=== PATIENT | female | born 1935 | race Two or more races ===

== ENCOUNTER → 2017-08-04 | Outpatient (CLI) | payer MEDICARE ==
[~2017-08-04] MED LIST: ASPI1CPM9 PO; GABA-827 PO; LEVO50TA PO; LISI-167 PO; SERT50TA PO; TOPI25TA32 PO; TRAM50TA2 PO
== END ==
LOC: RAD 12:30
PROVIDERS: ATTEND Internal Medicine
DX: I63.9 Cerebral infarction, unspecified (principal)
CPT/HCPCS: 70450

== ENCOUNTER → 2017-08-10 | Outpatient (CLI) | payer MEDICARE | END | disposition home or self-care (01) | LOC: CFH 10:06 | PROVIDERS: ATTEND Licensed Practical Nurse | DX: Z13.820 Encounter for screening for osteoporosis (principal); M81.0 Age-related osteoporosis without current pathological fracture; N95.8 Other specified menopausal and perimenopausal disorders; E55.9 Vitamin D deficiency, unspecified; R80.9 Proteinuria, unspecified; K80.20 Calculus of gallbladder without cholecystitis without obstruction; K76.0 Fatty (change of) liver, not elsewhere classified; E79.0 Hyperuricemia without signs of inflammatory arthritis and tophaceous disease; I12.9 Hypertensive chronic kidney disease with stage 1 through stage 4 chronic kidney disease, or unspecified chronic kidney disease; N18.3 Chronic kidney disease, stage 3 (moderate) | CPT/HCPCS: 77080 ==

== ENCOUNTER → 2017-11-10 | Outpatient (CLI) | payer MEDICARE | END | disposition home or self-care (01) | LOC: CFH 09:08 | PROVIDERS: ATTEND Pain Medicine Pain Medicine | DX: M41.86 Other forms of scoliosis, lumbar region (principal); M47.817 Spondylosis without myelopathy or radiculopathy, lumbosacral region; Z98.1 Arthrodesis status | CPT/HCPCS: 72114 ==

== ENCOUNTER → 2018-03-30 | Outpatient (CLI) | payer MEDICARE | END | disposition home or self-care (01) | LOC: CFH 11:22 | DX: M16.11 Unilateral primary osteoarthritis, right hip (principal); M46.1 Sacroiliitis, not elsewhere classified; M43.27 Fusion of spine, lumbosacral region | CPT/HCPCS: 72170 ==

== ENCOUNTER 2018-04-27 09:03 | Emergency (ER) | payer MEDICARE ==
[~2018-04-27] VITALS: Ht 162.6 cm; Wt 64.5 kg
[2018-04-27] MEDS ORDERED: METH750T2 PO (09:50)
[2018-04-27 10:06] LABS: BASOPHILS # (AUTO) 0.03 x10^3/uL (0-0.1); BASOPHILS % (AUTO) 0 % (0-1); EOSINOPHILS # (AUTO) 0.06 x10^3/uL (0-0.4); EOSINOPHILS % (AUTO) 1 % (1-7); LYMPHOCYTES # (AUTO) 1.64 x10^3/uL (1-3.4); LYMPHOCYTES % (AUTO) 24 % (22-44); MD NO; MEAN CORPUSCULAR HEMOGLOBIN 31.8 pg (27.0-34.8); MEAN CORPUSCULAR HGB CONC 33.1 g/dL (32.4-35.8); MEAN CORPUSCULAR VOLUME 96.2 fL (80-100); MEAN PLATELET VOLUME 8.2 fL (7.4-10.4); MONOCYTES # (AUTO) 0.67 x10^3/uL (0.2-0.8); MONOCYTES % (AUTO) 10 % (2-9); NEUTROPHILS # (AUTO) 4.57 x10^3/uL (1.8-6.8); NEUTROPHILS % (AUTO) 66 % (42-75); PLATELET COUNT 173 x10^3/uL (130-400); RED BLOOD COUNT 4.52 x10^6/uL (3.82-5.3)
[2018-04-27 10:12] LABS: ALANINE AMINOTRANSFERASE 28 U/L (12-78); ALBUMIN 3.7 g/dL (3.4-5.0); ANION GAP 6 mmol/L (5-15); CALCIUM 9.5 mg/dL (8.5-10.1); CHLORIDE 109 mmol/L (98-107)
[2018-04-27 10:13] LABS: INTERNATIONAL NORMALIZED RATIO 1.01 (0.93-1.1); PROTHROMBIN TIME 10.5 Seconds (9.6-11.5)
[2018-04-27 10:14] LABS: ALKALINE PHOSPHATASE 70 U/L (45-117); BILIRUBIN,TOTAL 0.5 mg/dL (0.2-1.0); TOTAL PROTEIN 6.9 g/dL (6.4-8.2)
[2018-04-27 11:02] VITALS: BP 148/64
== END 2018-04-27 12:18 | disposition home or self-care (01) ==
LOC: ED 10:55
DX: K62.5 Hemorrhage of anus and rectum (principal); I10 Essential (primary) hypertension; E03.9 Hypothyroidism, unspecified; M19.90 Unspecified osteoarthritis, unspecified site; F32.9 Major depressive disorder, single episode, unspecified; Z90.710 Acquired absence of both cervix and uterus; Z90.49 Acquired absence of other specified parts of digestive tract; Z90.89 Acquired absence of other organs; Z87.891 Personal history of nicotine dependence; Z88.0 Allergy status to penicillin; Z88.8 Allergy status to other drugs, medicaments and biological substances
CPT/HCPCS: 36415; 80053; 85025; 85610; 85730; 99284

== ENCOUNTER 2018-11-03 11:56 | Emergency (ER) | payer MEDICARE ==
[~2018-11-03] VITALS: Ht 165.1 cm; Wt 66.4 kg
[~2018-11-03 11:56] MED LIST changes: +METH750T2 PO
[2018-11-03 12:01] VITALS: BP 136/97
--- NOTE | 2018-11-03 12:31 | NUR ---
right leg dressed with steri strips and dressed
== END 2018-11-03 12:42 | disposition home or self-care (01) ==
LOC: ED 12:20
DX: S81.812A Laceration without foreign body, left lower leg, initial encounter (principal); W22.8XXA Striking against or struck by other objects, initial encounter; Y93.89 Activity, other specified; Y92.009 Unspecified place in unspecified non-institutional (private) residence as the place of occurrence of the external cause; Y99.8 Other external cause status
CPT/HCPCS: 12032

== ENCOUNTER 2019-04-09 13:14 | Outpatient (CLI) | payer MEDICARE | END 2019-04-09 23:59 | disposition home or self-care (01) | LOC: WOUND 13:14 | PROVIDERS: ATTEND Internal Medicine | DX: S89.91XD Unspecified injury of right lower leg, subsequent encounter (principal); Z86.73 Personal history of transient ischemic attack (TIA), and cerebral infarction without residual deficits; E78.5 Hyperlipidemia, unspecified; I10 Essential (primary) hypertension; F32.9 Major depressive disorder, single episode, unspecified; E03.9 Hypothyroidism, unspecified; G47.00 Insomnia, unspecified; Z96.653 Presence of artificial knee joint, bilateral; Z87.891 Personal history of nicotine dependence; X58.XXXD Exposure to other specified factors, subsequent encounter | CPT/HCPCS: G0463 ==

== ENCOUNTER 2019-04-12 10:24 | Inpatient (IN) | payer MEDICARE ==
[~2019-04-12] VITALS: Ht 165.1 cm; Wt 68.4 kg
--- NOTE | 2019-04-12 10:35 | NUR ---
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
[2019-04-12] MEDS ORDERED: CEFTRIAXONE PMX 1GM/50ML 50 ML IVPB ONE (11:00)
[2019-04-12] MEDS ORDERED: SODIUM CHLORIDE 0.9% 1,000ML IVBOLUS ONE (11:00)
[2019-04-12] MEDS ORDERED: VANCOMYCIN PER PHARMACY MC ONE (11:00)
[2019-04-12] MEDS ORDERED: MORPHINE SULFATE 4 MG/ML, 1ML IVPush PRN (11:00)
[2019-04-12] MEDS ORDERED: ONDANSETRON 2MG/ML, 2ML IVPush ONE (11:00)
[2019-04-12] MEDS ORDERED: MORPHINE SULFATE 4 MG/ML, 1ML ONE (11:04)
[2019-04-12] MEDS ORDERED: ONDANSETRON 2MG/ML, 2ML ONE (11:04)
[2019-04-12] MEDS ORDERED: CEFTRIAXONE PMX 1GM/50ML 50 ML ONE (11:04)
[2019-04-12 11:15] LABS: BASOPHILS # (AUTO) 0.02 x10^3/uL (0-0.1); BASOPHILS % (AUTO) 0 % (0-1); EOSINOPHILS # (AUTO) 0.12 x10^3/uL (0-0.4); EOSINOPHILS % (AUTO) 2 % (1-7); LYMPHOCYTES # (AUTO) 1.66 x10^3/uL (1-3.4); LYMPHOCYTES % (AUTO) 26 % (22-44); MD NO; MEAN CORPUSCULAR HEMOGLOBIN 32.6 pg (27.0-34.8); MEAN CORPUSCULAR HGB CONC 32.7 g/dL (32.4-35.8); MEAN CORPUSCULAR VOLUME 99.8 fL (80-100); MEAN PLATELET VOLUME 8.3 fL (7.4-10.4); MONOCYTES # (AUTO) 0.76 x10^3/uL (0.2-0.8); MONOCYTES % (AUTO) 12 % (2-9); NEUTROPHILS # (AUTO) 3.87 x10^3/uL (1.8-6.8); NEUTROPHILS % (AUTO) 60 % (42-75); PLATELET COUNT 216 x10^3/uL (130-400); RED BLOOD COUNT 4.28 x10^6/uL (3.82-5.3); RED CELL DISTRIBUTION WIDTH 12.5 % (9.6-15.2)
[2019-04-12 11:27] LABS: ALANINE AMINOTRANSFERASE 23 U/L (12-78); ALBUMIN 3.5 g/dL (3.4-5.0); ANION GAP 4 mmol/L (5-15); CALCIUM 10.1 mg/dL (8.5-10.1); CHLORIDE 109 mmol/L (98-107); CREATININE 1.09 mg/dL (0.55-1.02)
[2019-04-12 11:29] LABS: ALKALINE PHOSPHATASE 74 U/L (45-117); BILIRUBIN,TOTAL 0.5 mg/dL (0.2-1.0); TOTAL PROTEIN 7.4 g/dL (6.4-8.2)
[2019-04-12] MEDS ORDERED: VANCOMYCIN 1,200 MG in SODIUM CHLORIDE 0.9% 250 ML IV ONE (11:30)
[2019-04-12] MEDS ORDERED: LIDOCAINE-MPF 1%, 5ML INFIL ONE (12:00)
[2019-04-12] MEDS ORDERED: LIDOCAINE-MPF 1%, 5ML ONE ×2 (12:05)
--- NOTE | 2019-04-12 12:32 | NUR ---
Pt's abscess drained by millie Ann infusing, awaiting admit order. pt in bed, NAD, no needs at this time, WCTM.
--- NOTE | 2019-04-12 13:25 | NUR ---
Add on MD Doyle liz to place admit order. Pt in bed, NAD, no needs at this time, WCTM.
[2019-04-12] MEDS ORDERED: hydrALAzine 20 MG/ML, 1ML IVPush PRN (15:30)
[2019-04-12] MEDS ORDERED: ONDANSETRON 2MG/ML, 2ML IVPush PRN (15:30)
[2019-04-12] MEDS ORDERED: LABETALOL 5 MG/ML SYR. (IV ONLY) IVPush PRN (15:30)
[2019-04-12] MEDS ORDERED: morphine SULFATE 10 MG/ML, 1ML IVPush PRN (15:30)
[2019-04-12] MEDS: SODIUM CHLORIDE 0.9% 1,000 ML IV SCH (15:37)
[2019-04-12 16:20] VITALS: BP 125/47
[2019-04-12] MEDS: HEPARIN 5,000 UNITS/ML, 1ML SQ SCH ×2 (16:22→23:54)
[2019-04-12] MEDS: CLINDAMYCIN PMX 600MG/50ML 50 ML IV SCH ×2 (16:22→21:01)
[2019-04-12] MEDS: TOPIRAMATE 25 MG TABLET PO SCH ×2 (17:38→21:00)
[2019-04-12] MEDS: GABAPENTIN 400 MG CAPSULE PO SCH ×2 (17:38→21:00)
[2019-04-12 19:27] VITALS: BP 116/68
[2019-04-12] MEDS: METHOCARBAMOL 500 MG TABLET PO SCH (20:59)
[2019-04-12] MEDS ORDERED: METHOCARBAMOL 750 MG TABLET PO SCH (21:00)
[2019-04-12] MEDS: HYDROcodone/APAP 5/325 TABLET PO PRN (21:01)
[2019-04-13 01:45] VITALS: BP 101/61
[2019-04-13] MEDS: CLINDAMYCIN PMX 600MG/50ML 50 ML IV SCH ×4 (03:14→21:15)
[2019-04-13] MEDS: SODIUM CHLORIDE 0.9% 1,000 ML IV SCH (05:21)
[2019-04-13 05:45] VITALS: BP 120/68
[2019-04-13] MEDS: GABAPENTIN 400 MG CAPSULE PO SCH ×4 (05:58→21:15)
[2019-04-13] MEDS: LEVOTHYROXINE 50 MCG TABLET PO SCH (05:59)
[2019-04-13] MEDS: TOPIRAMATE 25 MG TABLET PO SCH ×4 (06:09→21:15)
[2019-04-13 06:15] LABS: BASOPHILS # (AUTO) 0.02 x10^3/uL (0-0.1); BASOPHILS % (AUTO) 1 % (0-1); EOSINOPHILS # (AUTO) 0.17 x10^3/uL (0-0.4); EOSINOPHILS % (AUTO) 4 % (1-7); LYMPHOCYTES # (AUTO) 1.86 x10^3/uL (1-3.4); LYMPHOCYTES % (AUTO) 41 % (22-44); MD NO; MEAN CORPUSCULAR HEMOGLOBIN 32.5 pg (27.0-34.8); MEAN CORPUSCULAR HGB CONC 32.7 g/dL (32.4-35.8); MEAN CORPUSCULAR VOLUME 99.6 fL (80-100); MEAN PLATELET VOLUME 8.1 fL (7.4-10.4); MONOCYTES # (AUTO) 0.59 x10^3/uL (0.2-0.8); MONOCYTES % (AUTO) 13 % (2-9); NEUTROPHILS # (AUTO) 1.95 x10^3/uL (1.8-6.8); NEUTROPHILS % (AUTO) 42 % (42-75); PLATELET COUNT 176 x10^3/uL (130-400); RED BLOOD COUNT 3.62 x10^6/uL (3.82-5.3); RED CELL DISTRIBUTION WIDTH 12.7 % (9.6-15.2)
[2019-04-13 06:28] LABS: CALCIUM 8.9 mg/dL (8.5-10.1); CHLORIDE 113 mmol/L (98-107)
[2019-04-13 06:31] LABS: ALANINE AMINOTRANSFERASE 20 U/L (12-78); ALBUMIN 2.6 g/dL (3.4-5.0); ALKALINE PHOSPHATASE 60 U/L (45-117); ANION GAP 4 mmol/L (5-15); BILIRUBIN,TOTAL 0.4 mg/dL (0.2-1.0); CREATININE 0.92 mg/dL (0.55-1.02); TOTAL PROTEIN 5.6 g/dL (6.4-8.2)
[2019-04-13] MEDS: HYDROcodone/APAP 5/325 TABLET PO PRN ×2 (06:33→16:45)
[2019-04-13] MEDS: HEPARIN 5,000 UNITS/ML, 1ML SQ SCH ×3 (08:38→23:44)
[2019-04-13] MEDS: METHOCARBAMOL 500 MG TABLET PO SCH ×3 (08:41→21:15)
[2019-04-13 08:55] VITALS: BP 126/53
[2019-04-13 14:00] VITALS: BP 121/64
[2019-04-13 19:28] VITALS: BP 112/57
[2019-04-14 00:58] VITALS: BP 115/69
[2019-04-14] MEDS: CLINDAMYCIN PMX 600MG/50ML 50 ML IV SCH ×4 (03:20→22:48)
[2019-04-14] MEDS: HYDROcodone/APAP 5/325 TABLET PO PRN ×2 (04:18→11:09)
[2019-04-14 05:37] LABS: BASOPHILS # (AUTO) 0.03 x10^3/uL (0-0.1); BASOPHILS % (AUTO) 1 % (0-1); EOSINOPHILS # (AUTO) 0.19 x10^3/uL (0-0.4); EOSINOPHILS % (AUTO) 4 % (1-7); LYMPHOCYTES % (AUTO) 37 % (22-44); MD NO; MEAN CORPUSCULAR HEMOGLOBIN 32.7 pg (27.0-34.8); MEAN CORPUSCULAR HGB CONC 32.9 g/dL (32.4-35.8); MEAN CORPUSCULAR VOLUME 99.5 fL (80-100); MEAN PLATELET VOLUME 8.1 fL (7.4-10.4); MONOCYTES # (AUTO) 0.71 x10^3/uL (0.2-0.8); MONOCYTES % (AUTO) 14 % (2-9); NEUTROPHILS # (AUTO) 2.26 x10^3/uL (1.8-6.8); NEUTROPHILS % (AUTO) 44 % (42-75); PLATELET COUNT 202 x10^3/uL (130-400); RED BLOOD COUNT 3.64 x10^6/uL (3.82-5.3); RED CELL DISTRIBUTION WIDTH 12.6 % (9.6-15.2)
[2019-04-14 05:48] LABS: CHLORIDE 115 mmol/L (98-107)
[2019-04-14 05:56] LABS: ALANINE AMINOTRANSFERASE 18 U/L (12-78); ALBUMIN 2.6 g/dL (3.4-5.0); ALKALINE PHOSPHATASE 64 U/L (45-117); ANION GAP 4 mmol/L (5-15); BILIRUBIN,TOTAL 0.2 mg/dL (0.2-1.0); CALCIUM 9.5 mg/dL (8.5-10.1); CREATININE 0.99 mg/dL (0.55-1.02); TOTAL PROTEIN 5.8 g/dL (6.4-8.2)
[2019-04-14 06:09] VITALS: BP 125/74
[2019-04-14] MEDS: TOPIRAMATE 25 MG TABLET PO SCH ×4 (06:12→20:58)
[2019-04-14] MEDS: GABAPENTIN 400 MG CAPSULE PO SCH ×4 (06:12→20:58)
[2019-04-14] MEDS: LEVOTHYROXINE 50 MCG TABLET PO SCH (06:12)
[2019-04-14 08:05] VITALS: BP 151/77
[2019-04-14] MEDS: HEPARIN 5,000 UNITS/ML, 1ML SQ SCH ×3 (08:50→23:18)
[2019-04-14] MEDS: METHOCARBAMOL 500 MG TABLET PO SCH ×2 (08:50→20:58)
[2019-04-14] MEDS: SODIUM CHLORIDE 0.9% 1,000 ML IV SCH (10:46)
[2019-04-14 12:07] VITALS: BP 128/82
[2019-04-14] MEDS ORDERED: POLYETHYLENE GLYCOL 17 GM PACKET NG PRN (18:00)
[2019-04-14 19:08] VITALS: BP 131/61
[2019-04-14 23:44] LABS: MICROSCOPIC AUTO
[2019-04-15 02:19] VITALS: BP 124/72
[2019-04-15 05:15] LABS: BASOPHILS # (AUTO) 0.02 x10^3/uL (0-0.1); BASOPHILS % (AUTO) 0 % (0-1); EOSINOPHILS # (AUTO) 0.23 x10^3/uL (0-0.4); EOSINOPHILS % (AUTO) 5 % (1-7); LYMPHOCYTES % (AUTO) 33 % (22-44); MD NO; MEAN CORPUSCULAR HEMOGLOBIN 32.3 pg (27.0-34.8); MEAN CORPUSCULAR HGB CONC 32.6 g/dL (32.4-35.8); MEAN PLATELET VOLUME 8.1 fL (7.4-10.4); MONOCYTES # (AUTO) 0.62 x10^3/uL (0.2-0.8); MONOCYTES % (AUTO) 12 % (2-9); NEUTROPHILS # (AUTO) 2.51 x10^3/uL (1.8-6.8); NEUTROPHILS % (AUTO) 49 % (42-75); PLATELET COUNT 214 x10^3/uL (130-400); RED BLOOD COUNT 3.76 x10^6/uL (3.82-5.3); RED CELL DISTRIBUTION WIDTH 12.5 % (9.6-15.2)
[2019-04-15 05:15] LABS: ALBUMIN 2.6 g/dL (3.4-5.0); ANION GAP 5 mmol/L (5-15); CALCIUM 9.7 mg/dL (8.5-10.1); CHLORIDE 115 mmol/L (98-107)
[2019-04-15] MEDS: CLINDAMYCIN PMX 600MG/50ML 50 ML IV SCH ×2 (05:30→11:26)
[2019-04-15] MEDS: GABAPENTIN 400 MG CAPSULE PO SCH ×4 (05:35→20:44)
[2019-04-15] MEDS: LEVOTHYROXINE 50 MCG TABLET PO SCH (05:36)
[2019-04-15] MEDS: TOPIRAMATE 25 MG TABLET PO SCH ×4 (05:36→20:44)
[2019-04-15 08:01] VITALS: BP 128/78
[2019-04-15] MEDS: METHOCARBAMOL 500 MG TABLET PO SCH ×2 (09:02→20:44)
[2019-04-15] MEDS: HEPARIN 5,000 UNITS/ML, 1ML SQ SCH ×2 (09:05→15:18)
[2019-04-15] MEDS: MULTIVITS,STRESS FORMULA 1 TABLET PO SCH (11:26)
[2019-04-15] MEDS: CALCIUM CARBONATE 500 MG TAB.CHEW PO SCH ×2 (11:26→20:44)
[2019-04-15 13:16] VITALS: BP 127/75
[2019-04-15] MEDS: CLINDAMYCIN 300 MG CAPSULE PO SCH ×2 (15:17→20:44)
[2019-04-15] MEDS: SODIUM CHLORIDE 0.9% 1,000 ML IV SCH (15:19)
[2019-04-15] MEDS: ASCORBIC ACID 500 MG TABLET PO SCH (17:13)
[2019-04-15] MEDS: CHOLECALCIFEROL 400 UNITS/ML ORAL SOL PO SCH (17:13)
[2019-04-15 18:52] VITALS: BP 125/69
[2019-04-16 01:06] VITALS: BP 134/69
[2019-04-16] MEDS: CLINDAMYCIN 300 MG CAPSULE PO SCH ×4 (02:25→20:16)
[2019-04-16] MEDS: HEPARIN 5,000 UNITS/ML, 1ML SQ SCH ×4 (02:26→23:36)
[2019-04-16] MEDS: HYDROcodone/APAP 5/325 TABLET PO PRN (02:43)
[2019-04-16 05:08] LABS: BASOPHILS # (AUTO) 0.03 x10^3/uL (0-0.1); BASOPHILS % (AUTO) 1 % (0-1); EOSINOPHILS # (AUTO) 0.21 x10^3/uL (0-0.4); EOSINOPHILS % (AUTO) 4 % (1-7); LYMPHOCYTES # (AUTO) 1.88 x10^3/uL (1-3.4); LYMPHOCYTES % (AUTO) 37 % (22-44); MD NO; MEAN CORPUSCULAR HEMOGLOBIN 32.4 pg (27.0-34.8); MEAN CORPUSCULAR HGB CONC 32.5 g/dL (32.4-35.8); MEAN CORPUSCULAR VOLUME 99.7 fL (80-100); MONOCYTES # (AUTO) 0.59 x10^3/uL (0.2-0.8); MONOCYTES % (AUTO) 12 % (2-9); NEUTROPHILS # (AUTO) 2.39 x10^3/uL (1.8-6.8); NEUTROPHILS % (AUTO) 47 % (42-75); PLATELET COUNT 243 x10^3/uL (130-400); RED BLOOD COUNT 3.85 x10^6/uL (3.82-5.3); RED CELL DISTRIBUTION WIDTH 13.1 % (9.6-15.2)
[2019-04-16 05:19] LABS: ALBUMIN 2.7 g/dL (3.4-5.0); ANION GAP 3 mmol/L (5-15); CALCIUM 9.5 mg/dL (8.5-10.1); CHLORIDE 117 mmol/L (98-107)
[2019-04-16] MEDS: GABAPENTIN 400 MG CAPSULE PO SCH ×4 (05:37→20:16)
[2019-04-16] MEDS: TOPIRAMATE 25 MG TABLET PO SCH ×4 (05:37→20:16)
[2019-04-16] MEDS: LEVOTHYROXINE 50 MCG TABLET PO SCH (05:37)
[2019-04-16 07:30] VITALS: BP 120/66
[2019-04-16] MEDS: MULTIVITS,STRESS FORMULA 1 TABLET PO SCH (09:15)
[2019-04-16] MEDS: METHOCARBAMOL 500 MG TABLET PO SCH ×2 (09:15→20:16)
[2019-04-16] MEDS: CALCIUM CARBONATE 500 MG TAB.CHEW PO SCH ×2 (09:16→20:22)
[2019-04-16] MEDS: ACETAMINOPHEN 325 MG TABLET PO PRN ×2 (09:17→17:08)
[2019-04-16] MEDS: ASCORBIC ACID 500 MG TABLET PO SCH ×2 (09:17→17:07)
[2019-04-16] MEDS: SODIUM CHLORIDE 0.9% 1,000 ML IV SCH (11:00)
[2019-04-16 12:20] VITALS: BP 149/76
[2019-04-16 18:51] VITALS: BP 136/69
[2019-04-16] MEDS: CHOLECALCIFEROL 400 UNITS/ML ORAL SOL PO SCH (20:16)
[2019-04-17 00:40] VITALS: BP 124/74
[2019-04-17] MEDS: CLINDAMYCIN 300 MG CAPSULE PO SCH ×3 (01:59→15:42)
[2019-04-17] MEDS: LEVOTHYROXINE 50 MCG TABLET PO SCH (05:30)
[2019-04-17] MEDS: GABAPENTIN 400 MG CAPSULE PO SCH ×3 (05:30→15:42)
[2019-04-17] MEDS: TOPIRAMATE 25 MG TABLET PO SCH ×3 (05:30→15:42)
[2019-04-17 07:12] VITALS: BP 126/69
[2019-04-17] MEDS: MULTIVITS,STRESS FORMULA 1 TABLET PO SCH (10:10)
[2019-04-17] MEDS: ASCORBIC ACID 500 MG TABLET PO SCH ×2 (10:11→15:43)
[2019-04-17] MEDS: CALCIUM CARBONATE 500 MG TAB.CHEW PO SCH (10:11)
[2019-04-17] MEDS: METHOCARBAMOL 500 MG TABLET PO SCH (10:11)
[2019-04-17] MEDS: HEPARIN 5,000 UNITS/ML, 1ML SQ SCH ×2 (10:11→15:40)
[2019-04-17] MEDS: ACETAMINOPHEN 325 MG TABLET PO PRN (10:12)
[2019-04-17 13:06] VITALS: BP 147/78
[2019-04-17] MEDS ORDERED: CLIN300C8 PO (13:42)
== END 2019-04-17 16:45 | disposition home health service (06) | DRG 579 ==
LOC: ED 12:03 → EDIP 13:26 → 3N 14:49 → DCLOUNGE 04-17 16:41
PROVIDERS: ADMIT Internal Medicine; ATTEND Internal Medicine
PROC: 0J9N0ZZ Drainage of Right Lower Leg Subcutaneous Tissue and Fascia, Open Approach (ICD-10-PCS; principal; 2019-04-12)
DX: L02.415 Cutaneous abscess of right lower limb (principal); L03.115 Cellulitis of right lower limb; N17.0 Acute kidney failure with tubular necrosis; E03.9 Hypothyroidism, unspecified; I10 Essential (primary) hypertension; M60.9 Myositis, unspecified; Z66 Do not resuscitate; M19.90 Unspecified osteoarthritis, unspecified site; Z87.891 Personal history of nicotine dependence; Z90.710 Acquired absence of both cervix and uterus; Z90.49 Acquired absence of other specified parts of digestive tract
CPT/HCPCS: 10060; 36415; 80053; 80069; 81001; 83605; 83735; 84145; 84443; 85025; 87040; 87070; 87077; 87186; 87205; 93005; 96374; 96375; G0378; J0696; J1644; J2405; J3370; J2270; J7030; J7050

== ENCOUNTER → 2019-04-19 | Outpatient (CLI) | payer MEDICARE ==
[~2019-04-19] MED LIST changes: +CLIN300C8 PO
== END | disposition home or self-care (01) ==
LOC: WOUND 08:51
PROVIDERS: ATTEND Podiatrist Foot & Ankle Surgery
DX: S89.91XD Unspecified injury of right lower leg, subsequent encounter (principal); L97.212 Non-pressure chronic ulcer of right calf with fat layer exposed; E78.5 Hyperlipidemia, unspecified; I10 Essential (primary) hypertension; F32.9 Major depressive disorder, single episode, unspecified; E03.9 Hypothyroidism, unspecified; G47.00 Insomnia, unspecified; Z96.653 Presence of artificial knee joint, bilateral; Z87.891 Personal history of nicotine dependence; Z86.73 Personal history of transient ischemic attack (TIA), and cerebral infarction without residual deficits; X58.XXXD Exposure to other specified factors, subsequent encounter
CPT/HCPCS: 11042

== ENCOUNTER → 2019-04-26 | Outpatient (CLI) | payer MEDICARE | END | disposition home or self-care (01) | LOC: WOUND 10:31 | PROVIDERS: ATTEND Podiatrist Foot & Ankle Surgery | DX: L97.212 Non-pressure chronic ulcer of right calf with fat layer exposed (principal); E78.5 Hyperlipidemia, unspecified; I10 Essential (primary) hypertension; F32.9 Major depressive disorder, single episode, unspecified; E03.9 Hypothyroidism, unspecified; G47.00 Insomnia, unspecified; M19.90 Unspecified osteoarthritis, unspecified site; G89.29 Other chronic pain; Z96.653 Presence of artificial knee joint, bilateral; Z87.891 Personal history of nicotine dependence; Z86.73 Personal history of transient ischemic attack (TIA), and cerebral infarction without residual deficits; Z90.710 Acquired absence of both cervix and uterus; Z90.49 Acquired absence of other specified parts of digestive tract | CPT/HCPCS: 11042 ==

== ENCOUNTER → 2019-05-03 | Outpatient (CLI) | payer MEDICARE | END | disposition home or self-care (01) | LOC: WOUND 11:08 | PROVIDERS: ATTEND Podiatrist Foot & Ankle Surgery | DX: L97.212 Non-pressure chronic ulcer of right calf with fat layer exposed (principal); E78.5 Hyperlipidemia, unspecified; I10 Essential (primary) hypertension; F32.9 Major depressive disorder, single episode, unspecified; E03.9 Hypothyroidism, unspecified; G47.00 Insomnia, unspecified; M19.90 Unspecified osteoarthritis, unspecified site; G89.29 Other chronic pain; Z96.653 Presence of artificial knee joint, bilateral; Z87.891 Personal history of nicotine dependence; Z86.73 Personal history of transient ischemic attack (TIA), and cerebral infarction without residual deficits; Z90.710 Acquired absence of both cervix and uterus; Z90.49 Acquired absence of other specified parts of digestive tract | CPT/HCPCS: G0463 ==

== ENCOUNTER → 2019-05-10 | Outpatient (CLI) | payer MEDICARE | END | disposition home or self-care (01) | LOC: WOUND 11:01 | PROVIDERS: ATTEND Podiatrist Foot & Ankle Surgery | DX: L97.212 Non-pressure chronic ulcer of right calf with fat layer exposed (principal); E78.5 Hyperlipidemia, unspecified; I10 Essential (primary) hypertension; F32.9 Major depressive disorder, single episode, unspecified; E03.9 Hypothyroidism, unspecified; G47.00 Insomnia, unspecified; M19.90 Unspecified osteoarthritis, unspecified site; G89.29 Other chronic pain; Z96.653 Presence of artificial knee joint, bilateral; Z87.891 Personal history of nicotine dependence; Z86.73 Personal history of transient ischemic attack (TIA), and cerebral infarction without residual deficits; Z90.710 Acquired absence of both cervix and uterus; Z90.49 Acquired absence of other specified parts of digestive tract | CPT/HCPCS: 11042 ==

== ENCOUNTER → 2019-05-24 | Outpatient (CLI) | payer MEDICARE | END | disposition home or self-care (01) | LOC: WOUND 10:23 | PROVIDERS: ATTEND Podiatrist Foot & Ankle Surgery | DX: L97.218 Non-pressure chronic ulcer of right calf with other specified severity (principal); E78.5 Hyperlipidemia, unspecified; I10 Essential (primary) hypertension; F32.9 Major depressive disorder, single episode, unspecified; E03.9 Hypothyroidism, unspecified; G47.00 Insomnia, unspecified; M19.90 Unspecified osteoarthritis, unspecified site; G89.29 Other chronic pain; Z96.653 Presence of artificial knee joint, bilateral; Z87.891 Personal history of nicotine dependence; Z86.73 Personal history of transient ischemic attack (TIA), and cerebral infarction without residual deficits; Z90.710 Acquired absence of both cervix and uterus; Z90.49 Acquired absence of other specified parts of digestive tract; Z88.0 Allergy status to penicillin; R32 Unspecified urinary incontinence | CPT/HCPCS: G0463 ==